=== PATIENT | male | born 1955 | race Caucasian/White ===

== ENCOUNTER 2017-01-27 08:09 | Outpatient (CLI) | payer OTHER ==
[2017-01-27 12:19] LABS: CHOL/HDL RATIO 3.1 (<5.0); CHOLESTEROL 154 mg/dL; HDL CHOLESTEROL 50 mg/dL; LDL/HDL RATIO 1.6 (<3.6); TRIGLYCERIDES 122 mg/dL; VLDL CHOLESTEROL 24 mg/dL
== END 2017-01-27 08:10 | disposition home or self-care (01) ==
LOC: LAB.F 08:09
PROVIDERS: ATTEND Family Medicine
DX: I10 Essential (primary) hypertension (principal); E78.5 Hyperlipidemia, unspecified; D53.9 Nutritional anemia, unspecified; Z12.11 Encounter for screening for malignant neoplasm of colon
CPT/HCPCS: 36415; 80061; 84153

== ENCOUNTER 2017-03-16 08:38 | Outpatient (CLI) | payer OTHER ==
[2017-03-16] MEDS ORDERED: REGADENOSON 0.4 MG/5 ML SYRINGE IVP ONE ×2 (09:25→14:35)
[2017-03-16 18:53] VITALS: BP 120/82
--- NOTE | 2017-03-16 19:17 | CARDIAC PROCEDURE NOTE ---
DATE OF SERVICE: 03/16/2017 PRIMARY CARE PHYSICIAN: Fernando Cevallos M.D. PROCEDURES: Pharmacologic stress test. CLINICAL HISTORY: Symptoms of atypical chest pain. CARDIAC RISK FACTORS: Age, hypertension, and hyperlipidemia. PRIOR PROCEDURES: ETT SYMPTOMS: None. CLINICAL HISTORY: A 61-year-old male without known coronary artery disease. PROCEDURE AND FINDINGS: The patient's ID and date verified. Consent signed. Pharmaceutical check performed. Vital signs: Blood pressure 120/82, pulse 59, height 70 inches, weight 255 pounds. Pharmacologic stress testing was performed with Lexiscan at a dose of 0.4 mg over 10 seconds. The patient experienced sensation of heavy legs, which resolved spontaneously. His blood pressure increased to 138/76 with heart rate maximum of 88 beats per minute. The resting ECG showed normal sinus rhythm with repolarization abnormality. There was less than 0.[address] segment depression. There was no ectopy. FINAL IMPRESSION: 1. Negative electrocardiogram for ischemia in the setting of vasodilator stress . 2. Negative stress test clinically for angina. 3. No ectopy nor arrhythmia noted. 4. Await findings of myocardial perfusion scan. JOB #: [id number] EXT JOB #:[id number] MTDIgor
--- NOTE | 2017-03-17 09:11 | Nuclear Medicine Report ---
EXAM: SINGLE-ISOTOPE PHARMACOLOGICAL STRESS TEST WITH LEXISCAN. SINGLE-ISOTOPE AND SAME-DAY REST/STRESS CARMEN CARDIAL PERFUSION SCANS WITH TOMOGRAPHIC IMAGING, QUANTITATIVE ANALYSIS, WALL MOTION ANALYSIS AND ALPHONSO CULATION OF EJECTION FRACTION. EXAM DATE: 03/16/2017 CLINICAL HISTORY: CHEST PAIN. COMPARISON: None. TECHNIQUE: Following the intravenous administration of 10.6 mCi of Tc-99m sestamibi, a rest myocardia l perfusion scan was done with tomography. Motion correction was applied when appropriate. After a delay of several hours on the same day, a pharmacological stress was performed with the infus ion of 0.4 mg of Lexiscan. According to protocol, 40.6 mCi of Tc-99m sestamibi was injected for stres s myocardial perfusion scan. Stress myocardial perfusion was done with tomography without attenuation correction. Motion correction was applied when appropriate. Gated tomographic images were obtained for wall motion analysis and computation of left ventricular ejection fraction. FINDINGS: Perfusion images: Left ventricular chamber size is normal at rest and unchanged at stress. No convincing fixed perfusion deficits. There is a small size region of mildly reduced uptake at the apical two thirds of the anteroseptal wa ll which is similar on stress and rest images without focal wall motion abnormality and gated images, probably artifactual. No convincing reversible perfusion deficits. Gated images: No definite focal wall motion abnormality. The left ventricular ejection fraction is estimated at 46% (normal > 50%). IMPRESSION: 1. No convincing reversible perfusion deficits to indicate stress-induced ischemia. 2. No convincing fixed perfusion deficits. 3. Left ventricular ejection fraction of 46% (normal > 50%). [facility] Referring Provider Line: [phone] SITE ID: [id number]
== END 2017-03-16 08:39 | disposition home or self-care (01) ==
LOC: DI 08:38
PROVIDERS: ATTEND Family Medicine
DX: R07.89 Other chest pain (principal); I10 Essential (primary) hypertension; E78.5 Hyperlipidemia, unspecified
CPT/HCPCS: 78452; 93017; A9500; J2785

== ENCOUNTER 2017-04-04 09:10 | Outpatient (CLI) | payer OTHER | END 2017-04-04 09:11 | disposition home or self-care (01) | LOC: DI 09:10 | PROVIDERS: ATTEND Family Medicine | DX: R07.89 Other chest pain (principal); I51.7 Cardiomegaly | CPT/HCPCS: 93306 ==

== ENCOUNTER 2021-10-07 10:04 | Outpatient (CLI) | payer MEDICARE ==
--- NOTE | 2021-10-07 11:10 | XRAY Report ---
PROCEDURE: Lumbar Spine 2 View INDICATIONS: LOW BACK PAIN TECHNIQUE: 3 views of the lumbar spine were acquired. COMPARISON: None. FINDINGS: Bones: 5 [id number] vertebrae are present. Multilevel degenerative changes with large anterior osteophytes throughout the thoracic and lumbar spine. There is severe facet arthrosis in the lumbar spine with multilevel disc space narrowing at L2-3, L3-4, and L5-S1 consistent with disc disease. The lower lumbar spine demonstrates leftward curvature. There is normal bony alignment. No vertebral letty dy compression fractures. No suspicious bony lesions. Soft tissues: Overlying bowel gas pattern is normal. No suspicious soft tissue calcifications. IMPRESSION: 1. Multilevel degenerative changes of the lumbar spine with facet arthrosis and multilevel disc disea se. 2. No acute abnormality. Reviewed by: Vince Jacinto on 10/07/2021 11:09 AM PDT Approved by: Vince Jacinto on 10/07/2021 11:09 AM PDT Station ID: [id number]
== END 2021-10-07 10:05 | disposition home or self-care (01) ==
LOC: DI 10:04
PROVIDERS: ATTEND Physician Assistant
DX: M47.816 Spondylosis without myelopathy or radiculopathy, lumbar region (principal)